=== PATIENT | male | born 1990 | race African-American/Black ===

== ENCOUNTER 2018-05-03 00:42 | Emergency (ER) | payer BC ==
[2018-05-03 00:59] VITALS: BMI 32.9
--- NOTE | 2018-05-03 01:31 | PDOC ---
*Physical Exam - Vital Signs Last Vital Signs Temp Pulse Resp BP Pulse Ox 99.5 F 94 H 16 148/104 H 100 05/03/18 00:52 05/03/18 00:52 05/03/18 00:52 05/03/18 00:52 05/03/18 00:52 ED Treatment Course - LABORATORY CBC & Chemistry Diagram: 05/03/18 01:54 05/03/18 01:54 Medical Decision Making - Medical Decision Making 05/03/18 01:30 Patient seen by the advanced practice provider under my direct supervision. Ancillary testing reviewed as necessary. I agree with plan as outlined by the advanced practice provider. *DC/Admit/Observation/Transfer Diagnosis at time of Disposition: Abdominal pain Qualifiers: Abdominal location: generalized Qualified Code(s): R10.84 - Generalized abdominal pain - Discharge Dispostion Disposition: HOME Condition at time of disposition: Stable - Prescriptions Prescriptions: Ondansetron [Zofran Odt -] 4 mg SL TID #21 od.tablet - Referrals - Patient Instructions Additional Instructions: Rest, drink lots of fluids: Teas, water, soups Elisa henry, carbonated beverages for the bubbles May try peppermint teas Avoid heavy , spicy or fatty foods until symptoms have resolved Avoid contact with others until fevers and symptoms resolved Lots of handwashing and good hygiene Continue [id number] medications for symptomatic relief Tylenol or Motrin for fever and pain May use Zofran-one tablet dissolved on tongue as needed for nauseousness. May repeat times one every 8 hours Followup with private physician in one to 2 days as needed Return to emergency department for worsened symptoms, fevers, dehydration - Post Discharge Activity Forms/Work/School Notes: Back to Work
[2018-05-03] MEDS ORDERED: SODIUM CHLORIDE 1,000 ML IV STA (01:32)
--- NOTE | 2018-05-03 01:45 | PDOC ---
History of Present Illness - General Chief Complaint: Nausea/Vomiting Stated Complaint: VOMITING/DEHYDRATED Time Seen by Provider: 05/03/18 01:22 History Source: Patient Exam Limitations: No Limitations - History of Present Illness Initial Comments: 05/03/18 01:39 HISTORY OF PRESENT ILLNESS: This is a 27-year-old male with past medical history of HIV on HAART (vl-undetectable; unsure of exact CD4 but states is normal) presents emergency department for evaluation of abdominal pain, loss of appetite, nausea, diarrhea for the past 3-4 days. Patient reports she's had 3 episodes of nonbilious nonbloody vomitus 3 days ago but has had none since. Patient denies any fevers, chest pain, shortness of breath, sore throats, dizziness, headaches. No recent travel or sick contacts. PAST MEDICAL HISTORY: HIV SURGICAL HISTORY: Denies ALLERGIES: No known drug allergies ID: Dr. Barr in [facility] REVIEW OF SYSTEMS General/Constitutional: Denies fever or chills. Denies weakness, weight change. HEENT: Denies change in vision. Denies ear pain or discharge. Denies sore throat. Cardiovascular: Denies chest pain or shortness of breath. Respiratory: Denies cough, wheezing, or hemoptysis. Gastrointestinal: see HPI Genitourinary: Denies dysuria, frequency, or change in urination. Musculoskeletal: Denies joint or muscle swelling or pain. Denies neck or back pain. Skin and breasts: Denies rash or easy bruising. Neurologic: Denies headache, vertigo, loss of consciousness, or loss of sensation. Psychiatric: Denies depression or anxiety. Endocrine: Denies increased thirst. Denies abnormal weight change. Hematologic/Lymphatic: Denies anemia, easy bleeding, or history of blood clots. Allergic/Immunologic: Denies hives or skin allergy. Denies latex allergy. PHYSICAL EXAM General Appearance: Well-appearing, appropriately dressed. No apparent distress , no intoxication. HEENT: EOMI, PERRLA, normal ENT inspection, normal voice, TMs normal, pharynx normal. No conjunctival pallor. No photophobia, scleral icterus. Neck: Supple. Trachea midline. No tenderness, rigidity, carotid bruit, stridor , lymphadenopathy, or thyromegaly. Respiratory/Chest: Lungs CTAB. No shortness of breath, chest tenderness, respiratory distress, accessory muscle use. No crackles, rales, rhonchi, stridor , wheezing, dullness Cardiovascular: RRR. S1, S2. No JVD, murmur, bradycardia, tachycardia. Vascular Pulses: Dorsalis-Pedis (R): 2+, Dorsalis-Pedis (L): 2+ Gastrointestinal/Abdominal: Hyperactive bowel sounds in RUQ. Abdomen soft, non- distended. Diffuse tenderness. No rebound tenderness. No organomegaly, pulsatile mass, guarding, hernia, hepatomegaly, splenomegaly. Lymphatic: No adenopathy, tenderness. Musculoskeletal/Extremities: Normal inspection. FROM of all extremities, normal capillary refill. Pelvis Stable. No CVA tenderness. No tenderness to extremities, pedal edema, swelling, erythema or deformity. Integumentary: Appropriate color, dry, warm. No cyanosis, erythema, jaundice or rash Neurologic: mainspring strip gauger II-XII intact. Fully oriented, alert. Appropriate mood/affect. Motor strength 5/5. No appreciable EOM palsy, facial droop or sensory deficit. Past History - Past Medical History Allergies/Adverse Reactions: Allergies Allergy/AdvReac Type Severity Reaction Status Date / Time No Known Allergies Allergy Verified 05/03/18 01:37 Home Medications: Ambulatory Orders Ondansetron [Zofran Odt -] 4 mg SL TID #21 od.tablet 05/03/18 - Suicide/Smoking/Psychosocial Hx Smoking History: Unknown if ever smoked Information on smoking cessation initiated: No Hx Alcohol Use: No Drug/Substance Use Hx: Yes (MJ) *Physical Exam - Vital Signs Last Vital Signs Temp Pulse Resp BP Pulse Ox 99.5 F 94 H 16 148/104 H 100 05/03/18 00:52 05/03/18 00:52 05/03/18 00:52 05/03/18 00:52 05/03/18 00:52 Moderate Sedation - Procedure Monitoring Vital Signs: Procedure Monitoring Vital Signs Temperature 99.5 F 05/03/18 00:52 Pulse Rate 94 H 05/03/18 00:52 Respiratory Rate 16 05/03/18 00:52 Blood Pressure 148/104 H 05/03/18 00:52 O2 Sat by Pulse Oximetry (%) 100 05/03/18 00:52 ED Treatment Course - LABORATORY CBC & Chemistry Diagram: 05/03/18 01:54 05/03/18 01:54 - RADIOLOGY Radiology Studies Ordered: Category Date Time Status ABDOMEN & PELVIS CT WITH CONTR [CT] Stat CT Scan 05/03/18 01:33 Ordered CHEST PA & LAT [RAD] Stat Radiology 05/03/18 01:33 Ordered Medical Decision Making - Medical Decision Making 05/03/18 01:43 A/P: 27-year-old male history of HIV with 3-4 days of diffuse abdominal pain, nausea , vomiting and diarrhea Differential diagnosis include but not limited to bowel obstruction, perforation , gastroenteritis, influenza, electrolyte abnormalities, infection Labs including lipase Urinalysis Urine culture Stool culture Influenza Normal saline 1 L IV bolus CTAP with IV contrast reassess 05/03/18 04:30 CT scan is read by imaging [employer] infrastructure consultant: No acute abdominal pathology noted. Chest x-ray is difficult to interpret due to poor technique. Repeat chest x-ray now. Laboratory testing and urinalysis are unremarkable. Zofran 4 mg IV now PO trial Reassess 05/03/18 05:09 Repeat chest x-rays read by me: No acute cardiopulmonary pathology present. *DC/Admit/Observation/Transfer Diagnosis at time of Disposition: Abdominal pain Qualifiers: Abdominal location: generalized Qualified Code(s): R10.84 - Generalized abdominal pain - Discharge Dispostion Disposition: HOME Condition at time of disposition: Stable Decision to Admit order: No - Prescriptions Prescriptions: Ondansetron [Zofran Odt -] 4 mg SL TID #21 od.tablet - Referrals - Patient Instructions Additional Instructions: Rest, drink lots of fluids: Teas, water, soups Elisa henry, carbonated beverages for the bubbles May try peppermint teas Avoid heavy , spicy or fatty foods until symptoms have resolved Avoid contact with others until fevers and symptoms resolved Lots of handwashing and good hygiene Continue [id number] medications for symptomatic relief Tylenol or Motrin for fever and pain May use Zofran-one tablet dissolved on tongue as needed for nauseousness. May repeat times one every 8 hours Followup with private physician in one to 2 days as needed Return to emergency department for worsened symptoms, fevers, dehydration - Post Discharge Activity Forms/Work/School Notes: Back to Work
[2018-05-03 02:02] LABS: BASO % 0.6 % (0-2.0); HEMATOCRIT 41.3 % (35.4-49); HEMOGLOBIN 14.4 GM/dL (11.7-16.9); LYMPH % 43.6 % (8-40); MCH 31.1 pg (25.7-33.7); MCHC 34.8 g/dl (32.0-35.9); MEAN CELL VOLUME 89.3 fl (80-96); MEAN PLT VOLUME 8.3 fl (7.5-11.1); MONO % 9.9 % (3.8-10.2); NEUT % 44.9 % (42.8-82.8); PLATELET COUNT 166 K/MM3 (134-434); RBC 4.63 M/mm3 (4.00-5.60); RDW 13.2 % (11.9-15.9)
[2018-05-03 02:39] LABS: ALBUMIN 3.4 g/dl (3.4-5.0); ALK PHOS 56 U/L (45-117); ANION GAP 7 MMOL/L (8-16); BILIRUBIN,TOTAL 0.7 mg/dL (0.2-1); BLOOD UREA NITROGEN 15 mg/dL (7-18); CHLORIDE 104 mmol/L (98-107); CO2 26 mmol/L (21-32); CREATININE 1.3 mg/dL (0.55-1.3); GLUCOSE,RANDOM 95 mg/dL (74-106); LIPASE 185 U/L (73-393); POTASSIUM 3.7 mmol/L (3.5-5.1); SGOT/AST 33 U/L (15-37); SGPT/ALT 42 U/L (13-61); SODIUM 137 mmol/L (136-145); TOT PROT 7.2 g/dl (6.4-8.2)
[2018-05-03 03:45] LABS: URINE APPEARANCE SLCLOUDY; URINE BILIRUBIN NEGATIVE (<2.0 mg/dL); URINE COLOR AMBER; URINE GLUCOSE (UA) NEGATIVE (NEGATIVE); URINE KETONE 1+ (NEGATIVE); URINE LEUK ESTERASE NEGATIVE (NEGATIVE); URINE NITRITE NEGATIVE (NEGATIVE); URINE PROTEIN 2+ (NEGATIVE)
[2018-05-03 03:50] LABS: URINE HYALINE CAST 1 /lpf; URINE MUCUS FEW
[2018-05-03] MEDS ORDERED: ONDANSETRON 4 MG/2 ML VIAL IVPUSH ONE (04:28)
[2018-05-03] MEDS ORDERED: ONDANSETRON 4 MG/2 ML VIAL ONE ×2 (04:57→05:13)
[2018-05-03 06:20] VITALS: BP 138/97; PULSE 82; TEMP 98.1
--- NOTE | 2018-05-03 09:52 | EKG ---
Test Reason : Blood Pressure : / mmHG Vent. Rate : 074 BPM Atrial Rate : 074 BPM P-R Int : 148 ms QRS Dur : 108 ms QT Int : 398 ms P-R-T Axes : 029 024 031 degrees QTc Int : 441 ms NORMAL SINUS RHYTHM NORMAL ECG NO PREVIOUS ECGS AVAILABLE Confirmed by IVORY RETANA MD ([id number]) on 05/03/2018 9:52:00 AM Referred By: Confirmed By:IVORY RETANA MD
== END 2018-05-03 06:24 | disposition home or self-care (01) ==
LOC: JER 00:42
PROC: 3E033GC Introduction of Other Therapeutic Substance into Peripheral Vein, Percutaneous Approach (ICD-10-PCS; principal; 2018-05-03)
PROC: 3E0337Z Introduction of Electrolytic and Water Balance Substance into Peripheral Vein, Percutaneous Approach (ICD-10-PCS; 2018-05-03)
DX: B20 Human immunodeficiency virus [HIV] disease (principal); R10.84 Generalized abdominal pain
CPT/HCPCS: 36415; 71046-TC-FY; 74177-TC; 80053; 81003; 81015; 83690; 85025; 87086; 87804; 93005; 93010; 99283-25; J7030

== ENCOUNTER 2020-07-14 01:52 | Inpatient (IN) | payer BC, OTHER ==
[2020-07-14 04:55] LABS: BASO % 0.6 % (0-2.0); EOS % 2.2 % (0-4.5); HEMATOCRIT 40.7 % (35.4-49); LYMPH % 38.1 % (8-40); MCH 32.4 pg (25.7-33.7); MCHC 34.4 g/dl (32.0-35.9); MEAN PLT VOLUME 8.9 fl (7.5-11.1); MONO % 5.2 % (3.8-10.2); NEUT % 53.9 % (42.8-82.8); PLATELET COUNT 205 K/MM3 (134-434); RBC 4.33 M/mm3 (4.00-5.60); RDW 14.8 % (11.9-15.9); WHITE BLOOD COUNT 8.3 K/mm3 (4.0-10.0)
[2020-07-14 05:00] LABS: INR 0.98 (0.83-1.09); PROTHROMBIN TIME (PATIENT) 11.9 SEC (9.7-13.0)
[2020-07-14 05:03] LABS: ACTIVATED PTT 33.1 SECONDS (25.2-36.5)
[2020-07-14] MEDS ORDERED: CLINDAMYCIN 600MG PREMIX IVPB 600 MG/50 ML BAG IVPB ONE ×2 (05:50→05:55)
[2020-07-14 06:59] LABS: CALCIUM 8.5 mg/dL (8.5-10.1)
[2020-07-14 07:03] LABS: CREATININE 1.1 mg/dL (0.55-1.3)
[2020-07-14] MEDS ORDERED: ACETAMINOPHEN 325 MG TABLET (FP) PO PRN ×2 (07:38→20:43)
[2020-07-14] MEDS ORDERED: LACTATED RINGERS SOLUTION 1,000 ML/1,000 ML INFUS.BAG IV SCH ×2 (10:00→20:43)
[2020-07-14] MEDS ORDERED: NIFEdipine E.R 60 MG TABLET PO SCH (10:00)
[2020-07-14] MEDS ORDERED: AMOX TR/POT CLAV 500MG/125MG TABLETS (FP) PO SCH ×2 (10:04→17:30)
[2020-07-14] MEDS ORDERED: CLINDAMYCIN 300 MG PREMIX IVPB 300 MG/50 ML BAG IVPB SCH (12:00)
[2020-07-14] MEDS: CLINDAMYCIN 300 MG PREMIX IVPB 300 MG/50 ML BAG IVPB SCH ×2 (12:00→18:34)
[2020-07-14 17:55] VITALS: BMI 33.4
[2020-07-14] MEDS ORDERED: DESFLURANE GAS 240 ML BOTTLE IH ONE (17:55)
[2020-07-14] MEDS ORDERED: LIDOCAINE HCL/PF 2% SDV 5ML VIAL ONE (18:43)
[2020-07-14] MEDS ORDERED: KETOROLAC TROMETHAMINE 30 MG/1 ML VIAL ONE (18:43)
[2020-07-14] MEDS ORDERED: PROPOFOL 20 ML ONE ×2 (18:43)
[2020-07-14] MEDS ORDERED: DEXAMETHASONE SOD PHOSPHATE 4 MG/1 ML VIAL ONE (18:43)
[2020-07-14] MEDS ORDERED: MIDAZOLAM HCL 2 MG/2 ML SINGLE DOSE VIAL ONE ×2 (18:44)
[2020-07-14] MEDS ORDERED: PT OWN MED DRAWER 7, Y5N ONE (19:48)
[2020-07-14] MEDS ORDERED: CLINDAMYCIN PHOSPHATE 600 MG/4 ML VIAL IVPB ONE (20:10)
[2020-07-14] MEDS ORDERED: CLINDAMYCIN PHOSPHATE 600 MG/4 ML VIAL ONE (20:11)
[2020-07-14] MEDS ORDERED: BUPIVACAINE HCL/PF 0.5% (5 MG/ML) 30 ML VIAL IJ ONE (20:21)
[2020-07-14] MEDS ORDERED: ONDANSETRON 4 MG/2 ML VIAL IVPUSH PRN (20:44)
[2020-07-14] MEDS: LACTATED RINGERS SOLUTION 1,000 ML IV SCH ×2 (21:30→21:42)
[2020-07-14] MEDS: DOCUSATE SODIUM 100 MG CAPSULE (FP) PO SCH (21:57)
[2020-07-15] MEDS: DOCUSATE SODIUM 100 MG CAPSULE (FP) PO SCH ×2 (05:31→15:44)
[2020-07-15 08:09] LABS: BASO % 0.2 % (0-2.0); HEMATOCRIT 41.1 % (35.4-49); HEMOGLOBIN 14.2 GM/dL (11.7-16.9); LYMPH % 12.4 % (8-40); MCHC 34.4 g/dl (32.0-35.9); MEAN CELL VOLUME 93.1 fl (80-96); MEAN PLT VOLUME 8.4 fl (7.5-11.1); MONO % 1.8 % (3.8-10.2); NEUT % 85.6 % (42.8-82.8); PLATELET COUNT 199 K/MM3 (134-434); RBC 4.42 M/mm3 (4.00-5.60); RDW 14.5 % (11.9-15.9)
[2020-07-15] MEDS: AMOX TR/POT CLAV 500MG/125MG TABLETS (FP) PO SCH ×2 (08:36→18:10)
[2020-07-15 08:46] LABS: ALBUMIN 3.7 g/dl (3.4-5.0); MAGNESIUM 2.4 mg/dL (1.8-2.4)
[2020-07-15 08:51] LABS: BILIRUBIN,TOTAL 1.6 mg/dL (0.2-1); TOT PROT 7.2 g/dl (6.4-8.2)
[2020-07-15] MEDS: oxyCODONE HCL 5 MG TABLET PO PRN ×2 (09:55→15:48)
[2020-07-15] MEDS ORDERED: NIFEdipine E.R 60 MG TABLET PO SCH (10:00)
[2020-07-15] MEDS ORDERED: ELVITEG/COB/EMTRI/TENOF (GENVOYA) TABLET (NF) PO SCH (15:00)
[2020-07-15 15:42] VITALS: BP 132/84; PULSE 96; TEMP 98.3
== END 2020-07-15 19:44 | disposition home or self-care (01) | DRG 395 ==
LOC: JER 01:52 → JERBED 06:54 → J8W 16:41
PROVIDERS: ADMIT Internal Medicine; ATTEND Internal Medicine
PROC: 0D9Q0ZX Drainage of Anus, Open Approach, Diagnostic (ICD-10-PCS; principal; 2020-07-14 14:30)
DX: K61.0 Anal abscess (principal); Z21 Asymptomatic human immunodeficiency virus [HIV] infection status; I10 Essential (primary) hypertension; L02.33 Carbuncle of buttock
CPT/HCPCS: 36415; 72193-TC; 80048; 80053; 83735; 84100; 85025; 85610; 85730; 86850; 86900; 86901; 87070; 87076; 87205; 94760; 99285-25; C9803; G0378; Q9967; U0003; U0005

== ENCOUNTER 2021-10-29 05:15 | Inpatient (IN) | payer OTHER ==
[2021-10-29] MEDS ORDERED: ACETAMINOPHEN 1000 MG/100 ML BAG IVPB ONE (06:26)
[2021-10-29 06:34] LABS: BASO % 0.9 % (0-2.0); EOS % 1.2 % (0-4.5); HEMATOCRIT 43.2 % (35.4-49); HEMOGLOBIN 14.5 GM/dL (11.7-16.9); LYMPH % 19.2 % (8-40); MCH 31.5 pg (25.7-33.7); MCHC 33.7 g/dl (32.0-35.9); MEAN CELL VOLUME 93.4 fl (80-96); MEAN PLT VOLUME 8.2 fl (7.5-11.1); MONO % 9.2 % (3.8-10.2); NEUT % 69.5 % (42.8-82.8); PLATELET COUNT 185 10^3/uL (134-434); RBC 4.62 M/mm3 (4.00-5.60); RDW 14.4 % (11.9-15.9)
[2021-10-29] MEDS ORDERED: morphine CARPU-JECT 4 MG/1 ML DISP.SYRIN IVPUSH ONE (06:48)
[2021-10-29] MEDS ORDERED: ONDANSETRON 4 MG/2 ML VIAL IVPUSH ONE (06:49)
[2021-10-29] MEDS ORDERED: morphine SULFATE 4 MG/ML VIAL ONE (06:54)
[2021-10-29] MEDS ORDERED: ACETAMINOPHEN INJECTION 100 ML IVPB ONE (06:54)
[2021-10-29] MEDS ORDERED: ONDANSETRON 4 MG/2 ML VIAL ONE (06:54)
[2021-10-29 06:57] LABS: INR 1.09 (0.83-1.09); PROTHROMBIN TIME (PATIENT) 12.5 SEC (9.7-13.0)
[2021-10-29 07:00] LABS: ACTIVATED PTT 31.4 SECONDS (25.2-36.5); ALBUMIN 3.6 g/dl (3.4-5.0); BLOOD UREA NITROGEN 15.4 mg/dL (7-18); CALCIUM 8.8 mg/dL (8.5-10.1)
[2021-10-29 07:04] LABS: CREATININE 1.3 mg/dL (0.55-1.3)
[2021-10-29 07:06] LABS: BILIRUBIN,TOTAL 0.4 mg/dL (0.2-1); TOT PROT 6.8 g/dl (6.4-8.2)
[2021-10-29] MEDS ORDERED: ACETAMINOPHEN 1000 MG/100 ML BAG IVPB PRN (11:28)
[2021-10-29] MEDS ORDERED: AMPICILLIN NA/SULBACTAM NA 1.5 GM in SODIUM CHLORIDE 100 ML IVPB SCH (12:00)
[2021-10-29] MEDS: NIFEdipine E.R 60 MG TABLET PO SCH (12:01)
[2021-10-29] MEDS: DEXTROSE 5%-0.45% SALINE 1,000 ML IV SCH (12:02)
[2021-10-29] MEDS: ELVITEG/COB/EMTRI/TENOF (GENVOYA) TABLET (NF) PO SCH (14:30)
[2021-10-29] MEDS: AMPICILLIN NA/SULBACTAM NA 1.5 GM in SODIUM CHLORIDE 100 ML IVPB SCH (14:31)
[2021-10-29 19:03] VITALS: BMI 27.9
[2021-10-29] MEDS ORDERED: oxyCODONE HCL 5 MG TABLET PO PRN (19:14)
[2021-10-29] MEDS ORDERED: morphine SULFATE 4 MG/ML VIAL IVPUSH PRN (19:16)
[2021-10-30] MEDS: AMPICILLIN NA/SULBACTAM NA 1.5 GM in SODIUM CHLORIDE 100 ML IVPB SCH ×2 (02:02→11:18)
[2021-10-30] MEDS: DEXTROSE 5%-0.45% SALINE 1,000 ML IV SCH ×2 (06:46→12:15)
[2021-10-30] MEDS: NIFEdipine E.R 60 MG TABLET PO SCH (11:19)
[2021-10-30] MEDS: ELVITEG/COB/EMTRI/TENOF (GENVOYA) TABLET (NF) PO SCH (11:20)
[2021-10-30] MEDS ORDERED: MIDAZOLAM HCL 2 MG/2 ML SINGLE DOSE VIAL ONE (13:26)
[2021-10-30] MEDS ORDERED: PROPOFOL 20 ML ONE (13:26)
[2021-10-30 13:52] LABS: BASO % 0.3 % (0-2.0); EOS % 1.1 % (0-4.5); HEMATOCRIT 45.4 % (35.4-49); HEMOGLOBIN 15.5 GM/dL (11.7-16.9); LYMPH % 18.2 % (8-40); MCH 31.4 pg (25.7-33.7); MCHC 34.1 g/dl (32.0-35.9); MEAN PLT VOLUME 8.7 fl (7.5-11.1); MONO % 9.8 % (3.8-10.2); NEUT % 70.6 % (42.8-82.8); PLATELET COUNT 167 10^3/uL (134-434); RBC 4.94 M/mm3 (4.00-5.60); RDW 14.4 % (11.9-15.9); WHITE BLOOD COUNT 4.3 K/mm3 (4.0-10.0)
[2021-10-30] MEDS: CEFTRIAXONE 2 GM in DEXTROSE 5%-WATER 2 GM/100 ML BAG IVPB SCH (15:35)
[2021-10-30] MEDS: ACETAMINOPHEN 325 MG TABLET (FP) PO PRN (17:11)
[2021-10-31] MEDS: NIFEdipine E.R 60 MG TABLET PO SCH (09:28)
[2021-10-31] MEDS: ELVITEG/COB/EMTRI/TENOF (GENVOYA) TABLET (NF) PO SCH (09:28)
[2021-10-31] MEDS: diphenhydrAMINE HCL 25 MG CAPSULE (FP) PO PRN ×2 (09:52→15:30)
[2021-10-31] MEDS: POLYETHYLENE GLYCOL (HEALTHYLAX) 3350 17 GM PACKET PO SCH (11:02)
[2021-10-31 12:16] LABS: HEMATOCRIT 46.2 % (35.4-49); HEMOGLOBIN 15.9 GM/dL (11.7-16.9); MCH 31.7 pg (25.7-33.7); MCHC 34.5 g/dl (32.0-35.9); MEAN PLT VOLUME 7.6 fl (7.5-11.1); PLATELET COUNT 164 10^3/uL (134-434); RBC 5.02 M/mm3 (4.00-5.60); RDW 14.4 % (11.9-15.9); WHITE BLOOD COUNT 3.9 K/mm3 (4.0-10.0)
[2021-10-31 12:41] LABS: ALBUMIN 3.6 g/dl (3.4-5.0); BLOOD UREA NITROGEN 9.4 mg/dL (7-18); CALCIUM 9.1 mg/dL (8.5-10.1)
[2021-10-31 12:44] LABS: ANISOCYTOSIS 0; CREATININE 1.1 mg/dL (0.55-1.3); MACROCYTOSIS 0
[2021-10-31 12:46] LABS: BILIRUBIN,TOTAL 0.5 mg/dL (0.2-1); TOT PROT 7.1 g/dl (6.4-8.2)
[2021-10-31 15:05] VITALS: RESP 18
[2021-10-31 15:21] LABS: MAGNESIUM 1.3 mg/dL (1.8-2.4)
[2021-10-31 15:24] LABS: PHOSPHOROUS 3.7 mg/dL (2.5-4.9)
[2021-10-31] MEDS: ACETAMINOPHEN 325 MG TABLET (FP) PO PRN ×2 (15:30→21:19)
[2021-10-31] MEDS: CEFTRIAXONE 2 GM in DEXTROSE 5%-WATER 2 GM/100 ML BAG IVPB SCH (15:30)
[2021-10-31] MEDS: SENNOSIDES 8.6MG TABLET (FP) PO SCH (21:19)
[2021-11-01] MEDS: ACETAMINOPHEN 325 MG TABLET (FP) PO PRN (05:45)
[2021-11-01] MEDS: CEFTRIAXONE 2 GM in DEXTROSE 5%-WATER 2 GM/100 ML BAG IVPB SCH (09:45)
[2021-11-01] MEDS: ELVITEG/COB/EMTRI/TENOF (GENVOYA) TABLET (NF) PO SCH (09:46)
[2021-11-01] MEDS: POLYETHYLENE GLYCOL (HEALTHYLAX) 3350 17 GM PACKET PO SCH (09:46)
[2021-11-01] MEDS: NIFEdipine E.R 60 MG TABLET PO SCH (09:46)
[2021-11-01] MEDS: diphenhydrAMINE HCL 25 MG CAPSULE (FP) PO PRN ×2 (09:53→22:52)
[2021-11-01 11:26] LABS: HEMATOCRIT 46.9 % (35.4-49); HEMOGLOBIN 15.9 GM/dL (11.7-16.9); MCH 31.3 pg (25.7-33.7); MCHC 33.8 g/dl (32.0-35.9); MEAN CELL VOLUME 92.6 fl (80-96); MEAN PLT VOLUME 8.4 fl (7.5-11.1); PLATELET COUNT 154 10^3/uL (134-434); RBC 5.07 M/mm3 (4.00-5.60); RDW 14.1 % (11.9-15.9); WHITE BLOOD COUNT 3.6 K/mm3 (4.0-10.0)
[2021-11-01 11:41] LABS: ALBUMIN 3.5 g/dl (3.4-5.0); BLOOD UREA NITROGEN 11.2 mg/dL (7-18); CALCIUM 8.7 mg/dL (8.5-10.1)
[2021-11-01 11:45] LABS: CREATININE 1.1 mg/dL (0.55-1.3)
[2021-11-01 11:46] LABS: BILIRUBIN,TOTAL 0.5 mg/dL (0.2-1); TOT PROT 7.1 g/dl (6.4-8.2)
[2021-11-01 12:16] LABS: ANISOCYTOSIS 0; MACROCYTOSIS 0; PLATELET ESTIMATE NORMAL
[2021-11-01] MEDS: SENNOSIDES 8.6MG TABLET (FP) PO SCH (21:04)
[2021-11-02 09:18] LABS: HEMATOCRIT 48.8 % (35.4-49); HEMOGLOBIN 16.3 GM/dL (11.7-16.9); MCHC 33.5 g/dl (32.0-35.9); MEAN CELL VOLUME 92.5 fl (80-96); MEAN PLT VOLUME 8.2 fl (7.5-11.1); PLATELET COUNT 178 10^3/uL (134-434); RBC 5.27 M/mm3 (4.00-5.60); RDW 14.4 % (11.9-15.9); WHITE BLOOD COUNT 4.8 K/mm3 (4.0-10.0)
[2021-11-02 09:33] LABS: ALBUMIN 3.8 g/dl (3.4-5.0); BLOOD UREA NITROGEN 10.2 mg/dL (7-18); MAGNESIUM 2.2 mg/dL (1.8-2.4)
[2021-11-02 09:38] LABS: BILIRUBIN,TOTAL 0.7 mg/dL (0.2-1); TOT PROT 7.6 g/dl (6.4-8.2)
[2021-11-02] MEDS: POLYETHYLENE GLYCOL (HEALTHYLAX) 3350 17 GM PACKET PO SCH (11:25)
[2021-11-02] MEDS: CEFTRIAXONE 2 GM in DEXTROSE 5%-WATER 2 GM/100 ML BAG IVPB SCH (11:25)
[2021-11-02] MEDS: NIFEdipine E.R 60 MG TABLET PO SCH (11:26)
[2021-11-02] MEDS: ELVITEG/COB/EMTRI/TENOF (GENVOYA) TABLET (NF) PO SCH (11:26)
[2021-11-02 11:38] LABS: ANISOCYTOSIS 0; MACROCYTOSIS 0
[2021-11-02] MEDS: valACYclovir HCL 500 MG TABLET (FP) PO SCH (21:05)
[2021-11-02] MEDS: ACETAMINOPHEN 325 MG TABLET (FP) PO PRN (21:05)
[2021-11-02] MEDS: SENNOSIDES 8.6MG TABLET (FP) PO SCH (21:05)
[2021-11-02] MEDS ORDERED: valACYclovir HCL 1000 MG TABLET PO SCH (22:00)
[2021-11-03 10:17] LABS: BASO % 1.2 % (0-2.0); HEMATOCRIT 49.1 % (35.4-49); HEMOGLOBIN 16.9 GM/dL (11.7-16.9); LYMPH % 45.9 % (8-40); MCH 31.5 pg (25.7-33.7); MCHC 34.3 g/dl (32.0-35.9); MEAN CELL VOLUME 91.7 fl (80-96); MEAN PLT VOLUME 8.3 fl (7.5-11.1); MONO % 12.1 % (3.8-10.2); NEUT % 36.8 % (42.8-82.8); PLATELET COUNT 211 10^3/uL (134-434); RBC 5.35 M/mm3 (4.00-5.60); RDW 14.4 % (11.9-15.9); WHITE BLOOD COUNT 5.7 K/mm3 (4.0-10.0)
[2021-11-03 10:32] LABS: CALCIUM 8.9 mg/dL (8.5-10.1)
[2021-11-03 10:33] LABS: ALBUMIN 4.2 g/dl (3.4-5.0); BLOOD UREA NITROGEN 10.6 mg/dL (7-18); MAGNESIUM 2.2 mg/dL (1.8-2.4)
[2021-11-03 10:36] LABS: CREATININE 0.8 mg/dL (0.55-1.3); PHOSPHOROUS 2.9 mg/dL (2.5-4.9)
[2021-11-03 10:37] LABS: BILIRUBIN,TOTAL 0.7 mg/dL (0.2-1); TOT PROT 8.5 g/dl (6.4-8.2)
[2021-11-03] MEDS: valACYclovir HCL 500 MG TABLET (FP) PO SCH (11:10)
[2021-11-03] MEDS: POLYETHYLENE GLYCOL (HEALTHYLAX) 3350 17 GM PACKET PO SCH (11:10)
[2021-11-03] MEDS: NIFEdipine E.R 60 MG TABLET PO SCH (11:10)
[2021-11-03] MEDS: ELVITEG/COB/EMTRI/TENOF (GENVOYA) TABLET (NF) PO SCH (11:11)
[2021-11-03] MEDS: diphenhydrAMINE HCL 25 MG CAPSULE (FP) PO PRN (11:11)
[2021-11-03] MEDS: CEFTRIAXONE 2 GM in DEXTROSE 5%-WATER 2 GM/100 ML BAG IVPB SCH (11:11)
[2021-11-03 11:15] VITALS: TEMP 98.4
[2021-11-03 15:58] VITALS: BP 132/81; PULSE 88
== END 2021-11-03 18:36 | disposition home or self-care (01) | DRG 394 ==
LOC: JER 05:15 → JERBED 08:32 → J5S 11:51
PROVIDERS: ADMIT Internal Medicine; ATTEND Internal Medicine
DX: K61.0 Anal abscess (principal); B04 Monkeypox; B20 Human immunodeficiency virus [HIV] disease; I10 Essential (primary) hypertension; N48.5 Ulcer of penis; R21 Rash and other nonspecific skin eruption; D72.819 Decreased white blood cell count, unspecified
CPT/HCPCS: 36415; 71045-TC-FY; 72193-TC; 80053; 83735; 84100; 85025; 85610; 85730; 86359; 86360; 86593; 86780; 86850; 86900; 86901; 87070; 87077; 87186; 87205; 87491; 87529; 87591; 87593; 87661; 93005; 93010; 99285-25; C9803-CS; Q9967; U0003; U0005